=== PATIENT | female | born 1990 | race Asian ===

== ENCOUNTER 2022-06-18 16:17 | Emergency (ER) | payer OTHER ==
[~2022-06-18] VITALS: Ht 162.6 cm; Wt 85.0 kg
[2022-06-18 17:17] LABS: CHLORIDE 103 mEq/L (98-107); HEMATOCRIT. 30.6 % (36.0-48.0); HEMOGLOBIN. 10.5 g/dL (12.0-16.0); MEAN CORPUSCULAR HEMOGLOBIN 28.9 pg (28.0-32.0); MEAN CORPUSCULAR VOLUME 84.5 fL (81.0-99.0); MEAN PLATELET VOLUME 7.2 fl (7.4-10.4); PLATELET 238 x1000/uL (130-400); RED BLOOD CELL COUNT 3.62 mill/uL (4.2-5.4); RED CELL DISTRIBUTION WIDTH 12.9 % (11.6-14.6)
[2022-06-18 17:41] LABS: B-HCG QUANTITATIVE 4663 mIU/mL (<3)
[2022-06-18 17:49] LABS: PLATELET ESTIMATE NORMAL
[2022-06-18] MEDS ORDERED: SODIUM CHLORIDE 0.9% 1,000 ML IV ONE (18:00)
[2022-06-18] MEDS ORDERED: LEVO25TA7 PO (18:54)
[2022-06-18] MEDS ORDERED: LEVO25TA7 MT (18:54)
[2022-06-18] MEDS ORDERED: APIX5TAB PO (18:55)
[2022-06-18] MEDS ORDERED: ATOR10TA69 MT (18:56)
[2022-06-18] MEDS ORDERED: ATOR10TA69 PO (18:56)
[2022-06-18 19:51] LABS: CLARITY URINE CLEAR (CLEAR); COLOR URINE YELLOW (YELLOW); KETONES URINE NEGATIVE (NEGATIVE); LEUKOCYTE ESTERASE URINE 3+ (NEGATIVE); NITRITE URINE POSITIVE (NEGATIVE); OCCULT BLOOD URINE TRACE (NEGATIVE); PROTEIN URINE NEGATIVE (NEGATIVE); SPECIFIC GRAVITY URINE 1.006 (1.005-1.030); UROBILINOGEN URINE 0.2 E.U./dL (0.2-1.0)
[2022-06-18] MEDS ORDERED: IOHEXOL-350 100 ML BOTTLE ONE (20:52)
[2022-06-18] MEDS ORDERED: CEPH500C2 MT (21:50)
[2022-06-18 22:10] VITALS: BP 116/69
== END 2022-06-18 23:17 | disposition home or self-care (01) ==
LOC: ER 16:17 → EDBEDREQ 17:51 → ER 23:17 → CANBEDREQ 06-19 20:10
DX: O26.892 Other specified pregnancy related conditions, second trimester (principal); O99.891 Other specified diseases and conditions complicating pregnancy; O23.42 Unspecified infection of urinary tract in pregnancy, second trimester; N39.0 Urinary tract infection, site not specified; R68.83 Chills (without fever); R00.0 Tachycardia, unspecified; R79.1 Abnormal coagulation profile; Z3A.25 25 weeks gestation of pregnancy; F41.9 Anxiety disorder, unspecified; I12.9 Hypertensive chronic kidney disease with stage 1 through stage 4 chronic kidney disease, or unspecified chronic kidney disease; E11.22 Type 2 diabetes mellitus with diabetic chronic kidney disease; N18.9 Chronic kidney disease, unspecified; Z87.440 Personal history of urinary (tract) infections
CPT/HCPCS: 36415; 71275; 76815; 80053; 81003; 82962; 83880; 84484; 84702; 85025; 85379; 87077; 87086; 87186; 93005; 96360; 99285; J7030; Q9967